=== PATIENT | female | born 1975 | race Caucasian/White ===

== ENCOUNTER 2016-03-08 14:08 | Emergency (ER) | payer BC ==
[2016-03-08] MEDS: 0.9 % SODIUM CHLORIDE 1,000 ML BAG IV ONE (15:47)
[2016-03-08] MEDS: PROMETHAZINE HCL 25 MG/ML VIAL IVP ONE (15:47)
[2016-03-08] MEDS: HYDROMORPHONE HCL 1 MG/ML CPJ IVP ONE (15:47)
[2016-03-08 15:50] LABS: BASO % 0.2 % (0-6); EOS % 0.4 % (0-6); GRAN % 76.2 % (47-80); HEMATOCRIT 42.1 % (35.0-47.0); HEMOGLOBIN 14.6 gm/dl (11.6-16.0); LYMPH % 19.3 % (16-45); MEAN CELL VOLUME 90.3 fl (81-97); MEAN CORPUSCULAR HEMOGLOBIN 31.3 pg (27-33); MEAN CORPUSCULAR HGB CONC 34.7 g/dl (32-36); MEAN PLATELET VOLUME 9.7 fl (7.4-10.4); MONO % 3.9 % (0-9); PLATELET COUNT 280 K/uL (130-400); RED BLOOD COUNT 4.66 M/uL (3.80-5.40); RED CELL DISTRIBUTION WIDTH 12.6 % (11.5-14.5)
--- NOTE | 2016-03-08 17:01 | Emergency Department Record ---
History of Present Illness - General Chief Complaint: Headache Migraine Stated Complaint: PLAZA,VOMTING Time Seen by Provider: 03/08/16 15:20 Source: Patient Mode of Arrival: Ambulatory Limitations: No limitations - History of Present Illness Initial Comments: pt states her sinuses have been acting up the last week and now she has developed a headache that has gradually grown worse. she vomited once. she has had headaches before but never been evaluated for them. this is not the worst headache of her life. MD Complaint: Headache Onset/Timin -: Hour(s) Onset Description: Gradual Location: Neck, Occipital, Right, Temporal Severity: Severe Severity scale (1-10): 8 Quality: Other Consistency: Constant Improves With: Nothing Context: Recent URI Associated Symptoms: Nausea, Photophobia, Vomiting Treatments Prior to Arrival: Ibuprofen Treatment Prior to Arrival Comment:: Advil - Related Data Previous Rx's Medication Instructions Recorded Amoxicillin/Potassium Clav 1 tab PO BID #20 tab 03/08/16 [Augmentin 875-125 Tablet] Hydrocodone/Acetaminophen [Crandall 1 tab PO Q6H PRN #7 tab 03/08/16 5mg/325mg] Allergies Allergy/AdvReac Type Severity Reaction Status Date / Time No Known Drug Allergies Allergy Verified 03/08/16 14:32 Travel Screening - Travel/Exposure Within Last 30 Days Have you traveled within the last 30 days?: No - Travel/Exposure Within Last Year Have you traveled outside the [place] in the last year?: No - Additonal Travel Details Have you been exposed to anyone with a communicable illness?: No - Travel Symptoms Symptom Screening: None Review of Systems Reviewed: No additional complaints except as noted below Constitutional: Reports: As per HPI. Denies: Chills, Fever, Malaise, Night sweats, Weakness, Weight change Eyes: Reports: As per HPI. Denies: Eye discharge, Eye pain, Photophobia, Vision change ENT: Reports: As per HPI. Denies: Congestion, Dental pain, Ear pain, Epistaxis , Hearing loss, Throat pain Respiratory: Reports: As per HPI. Denies: Cough, Dyspnea, Hemoptysis, Stridor, Wheezes Cardiovascular: Reports: As per HPI. Denies: Arrhythmia, Chest pain, Dyspnea on exertion, Edema, Murmurs, Orthopnea, Palpitations, Paroxysmal nocturnal dyspnea, Rheumatic Fever, Syncope Endocrine: Reports: As per HPI. Denies: Fatigue, Heat or cold intolerance, Polydipsia, Polyuria Gastrointestinal: Reports: As per HPI. Denies: Abdominal pain, Constipation, Diarrhea, Hematemesis, Hematochezia, Melena, Nausea, Vomiting Genitourinary: Reports: As per HPI. Denies: Abnormal menses, Discharge, Dyspareunia, Dysuria, Frequency, Hematuria, Incontinence, Retention, Urgency Musculoskeletal: Reports: As per HPI. Denies: Arthralgia, Back pain, Gout, Joint swelling, Myalgia, Neck pain Skin: Reports: As per HPI. Denies: Bruising, Change in color, Change in hair/ nails, Lesions, Pruritus, Rash Neurological: Reports: As per HPI. Denies: Abnormal gait, Confusion, Headache, Numbness, Paresthesias, Seizure, Tingling, Tremors, Vertigo, Weakness Psychiatric: Reports: As per HPI. Denies: Anxiety, Auditory hallucinations, Depression, Homicidal thoughts, Suicidal thoughts, Visual hallucinations Hematological/Lymphatic: Reports: As per HPI. Denies: Anemia, Blood Clots, Easy bleeding, Easy bruising, Swollen glands Past Medical History - SOCIAL HISTORY Smoking Status: Current every day smoker Alcohol Use: None Drug Use: None - RESPIRATORY Hx Respiratory Disorders: No - CARDIOVASCULAR Hx Cardio Disorders: No - NEURO Hx Neuro Disorders: Yes Comment:: Migraines - GI Hx GI Disorders: No - Hx Genitourinary Disorders: No - ENDOCRINE Hx Endocrine Disorders: No - MUSCULOSKELETAL Hx Musculoskeletal Disorders: No - PSYCH Hx Psych Problems: No - HEMATOLOGY/ONCOLOGY Hx Hematology/Oncology Disorders: No Family Medical History Any Significant Family History?: No Physical Exam - General General Appearance: Alert, Oriented x3, Cooperative, Mild distress - Head Head exam: Normal inspection - Eye Eye exam: Normal appearance, PERRL, EOMI Pupils: Normal accommodation - ENT ENT exam: Normal exam, Mucous membranes moist, Normal external ear exam, Normal orophraynx, Other (r tm erythematous) Ear exam: Normal external inspection. negative: External canal tenderness Nasal Exam: Sinus tenderness. negative: Normal inspection, Discharge Mouth exam: Normal external inspection, Tongue normal Teeth exam: Normal inspection. negative: Dental caries Throat exam: Normal inspection. negative: Tonsillar erythema, Tonsillar exudate - Neck Neck exam: Normal inspection, Full ROM. negative: Tenderness - Respiratory Respiratory exam: Normal lung sounds bilaterally. negative: Respiratory distress - Cardiovascular Cardiovascular Exam: Regular rate, Normal rhythm, Normal heart sounds - GI/Abdominal GI/Abdominal exam: Soft, Normal bowel sounds. negative: Tenderness - Rectal Rectal exam: Deferred - exam: Deferred - Extremities Extremities exam: Normal inspection, Full ROM, Normal capillary refill. negative: Tenderness - Back Back exam: Reports: Normal inspection, Full ROM. Denies: Muscle spasm, Rash noted, Tenderness - Neurological Neurological exam: Alert, CN II-XII intact, Normal gait, Oriented X3 - Psychiatric Psychiatric exam: Normal affect, Normal mood - Skin Skin exam: Dry, Intact, Normal color, Warm Course Vital Signs 03/08/16 03/08/16 14:33 16:11 Temperature 97.5 F L Pulse Rate 85 Pulse Rate [ 75 Pulse Ox Probe] Respiratory 16 16 Rate Blood Pressure 135/99 Blood Pressure 137/86 [Left Arm] Pulse Ox 96 100 Medical Decision Making - Management Options MDM Management: Additional Work-up Planned (e.g. ADM/Transfer/OP Study) - Data Complexity MDM Data: Labs Ordered and/or Reviewed, X-Ray Ordered and/or Reviewed - Lab Data Result diagrams: 03/08/16 15:43 Lab Results 03/08/16 Range/Units 15:43 WBC 13.0 H (4.2-12.2) K/uL RBC 4.66 (3.80-5.40) M/uL Hgb 14.6 (11.6-16.0) gm/dl Hct 42.1 (35.0-47.0) % MCV 90.3 (81-97) fl MCH 31.3 (27-33) pg MCHC 34.7 (32-36) g/dl RDW 12.6 (11.5-14.5) % Plt Count 280 (130-400) K/uL MPV 9.7 (7.4-10.4) fl Gran % 76.2 (47-80) % Lymphocytes % 19.3 (16-45) % Monocytes % 3.9 (0-9) % Eosinophils % 0.4 (0-6) % Basophils % 0.2 (0-6) % - Radiology Data Radiology results: Report reviewed, Image reviewed Disposition Disposition: Discharge Clinical Impression: Sinusitis Qualifiers: Sinusitis location: maxillary Chronicity: acute Recurrence: non-recurrent Qualified Code(s): J01.00 - Acute maxillary sinusitis, unspecified Cephalgia Qualifiers: Headache type: unspecified Headache chronicity pattern: acute headache Intractability: intractable Qualified Code(s): R51 - Headache Disposition: Home, Self-Care Condition: (1) Good Instructions: Acute Headache (ED), Sinusitis (ED) Additional Instructions: follow up with family doctor. return sooner if worse. rest. Prescriptions: Amoxicillin/Potassium Clav [Augmentin 875-125 Tablet] 1 tab PO BID #20 tab Hydrocodone/Acetaminophen [Crandall 5mg/325mg] 1 tab PO Q6H PRN #7 tab PRN Reason: Pain - General Forms: Patient Portal Access
[2016-03-08] MEDS: AZITHROMYCIN 500 MG TABLET PO ONE (17:04)
[2016-03-08] MEDS: KETOROLAC 30 MG/ML VIAL IVP ONE (17:04)
--- NOTE | 2016-03-09 07:35 | CT SCAN REPORT ---
EXAM: CT SCAN OF THE HEAD HISTORY: PATIENT HAS HAD AN ACUTE HEADACHE SINCE YESTERDAY. TECHNIQUE: Serial axial CT scan of the head was performed at 2.5 mm intervals from the base of the skull to the apex without the use of intravenous contrast. Sagittal and coronal reconstructions were provided. No comparison studies are available. FINDINGS: The ventricles, cisterns, and sulci appear within ewa limits for size, shape and attenuation. There is no mass or mass effect. The padilla white differentiation appear within normal limits. Bone windows demonstrate no CT evidence of a fracture or dislocation of the skull. The paranasal sinuses demonstrate air fluid levels with moderate to significant mucosal thickening within the bilateral maxillary and ethmoid sinuses suggesting acute and chronic sinusitis. Clinical correlation is recommended. IMPRESSION: NO CT EVIDENCE OF AN ACUTE INTRACRANIAL PROCESS. FINDINGS ARE SUGGESTIVE OF ACUTE AND CHRONIC SINUSITIS. CLINICAL CORRELATION IS RECOMMENDED. JOB NUMBER: [id number] MTDD
== END 2016-03-08 18:34 | disposition home or self-care (01) ==
LOC: ER 14:08
DX: J01.00 Acute maxillary sinusitis, unspecified (principal); R51 Headache; R11.2 Nausea with vomiting, unspecified
CPT/HCPCS: 99284 ×2; 96374; 96375; 85025; 70450; J1885; J1170; J2550; J7030